=== PATIENT | male | born 1960 | race Caucasian/White ===

== ENCOUNTER 2017-07-09 13:42 | Emergency (ER) | payer OTHER ==
--- NOTE | 2017-07-09 15:40 | CT SCAN REPORT ---
EXAMINATION: CT HEAD WITHOUT CONTRAST CLINICAL INFORMATION: Double vision. COMPARISON: None. TECHNIQUE: Contiguous axial imaging was performed from the skull base to vertex without intravenous administration of contrast. DLP: 625 2 mGy-cm FINDINGS: There is no evidence of acute intracranial hemorrhage or territorial infarction. No abnormal mass effect or midline shift is seen. [place] to white matter differentiation is well preserved. No extra-axial fluid collections are identified. There is mild commensurate prominence of the ventricles and sulci consistent with diffuse volume loss. There are patchy areas of low attenuation in the periventricular and subcortical white matter, consistent with chronic microvascular ischemic disease. In addition there are more focal areas of low attenuation in the bilateral basal ganglia, consistent with lacunar infarcts. These are most prominent in the right thalamus in the right caudate body/tail. A lacunar infarct is also seen in the left cleaning radiata. The osseous structures and soft tissues are normal. The orbits appear normal. The visualized mastoid air cells and paranasal sinuses are well aerated. IMPRESSION: 1. There are no acute bleeds or territorial infarcts. 2. There are multiple lacunar infarcts bilaterally as described above. There is diffuse volume loss and there are chronic microvascular ischemic changes.
--- NOTE | 2017-07-09 16:12 | ED GENERAL ADULT ---
History of Present Illness General Chief Complaint: General Adult Stated Complaint: PT STATES "I HAVE DOUBLE VISION X 2DYS" Source: patient Exam Limitations: no limitations Vital Signs & Intake/Output Vital Signs & Intake/Output Vital Signs Date Time Temp Pulse Resp B/P B/P Pulse O2 O2 Flow FiO2 Mean Ox Delivery Rate 07/09 2154 98.4 83 20 180/100 96 Room Air 07/09 1932 98.6 74 20 192/120 96 Room Air 07/09 1418 100 22 160/98 98 Room Air Allergies Coded Allergies: No Known Allergies (07/09/17) Triage Note: PER PT X 2 DAYS DOUBLE VISION PT REPORTS NO HEADACHE AND IS BETTER TODAY NOW SEEING ONLY 1 BUT FEELS LIKE IT IS STILL NOT 100% RIGHT, PER PT WORKING VERY HARD LATELY NO HEADACHE PT TALKING INCESSANTLY AND IS DIFFICULT TO ASSESS CERTAINLY WITHOUT SLURRED SPEECH EQUAL GRASPS Triage Nurses Notes Reviewed? yes Onset: Abrupt Duration: day(s): Timing: recent history HPI: 07/09/17 7:18 PM 57-year-old male presents to the emergency department for double vision. The patient states that on Saturday afternoon he developed double vision. He said that he actually slept at work and over the last several days the symptoms have essentially completely resolved. There is no weakness there is no slurred speech there is no chest pain. No shortness of breath. No fever. No headache. (Garfield Hunt DO) Past History Travel History Traveled to [place] past 21 day No Medical History Any Pertinent Medical History? see below for history Neurological: NONE EENT: NONE Cardiovascular: NONE Respiratory: NONE Gastrointestinal: NONE Hepatic: NONE Renal: NONE Musculoskeletal: NONE Psychiatric: NONE Endocrine: NONE Surgical History Surgical History: non-contributory Psychosocial History What is your primary language French Tobacco Use: Never used Family History Hx Contributory? No (Garfield Hunt DO) Review of Systems Review of Systems Constitutional: Denies: fever. EENTM: Reports: see HPI, double vision. Respiratory: Denies: short of breath. Cardiovascular: Denies: chest pain. GI: Denies: abdominal pain. Genitourinary: Reports: no symptoms. Musculoskeletal: Reports: no symptoms. Skin: Reports: no symptoms. Neurological/Psychological: Reports: see HPI. Hematologic/Endocrine: Reports: no symptoms. Immunologic/Allergic: Reports: no symptoms. (Garfield Hunt DO) Physical Exam Physical Exam General Appearance: well developed/nourished, alert, awake, anxious, mild distress Head: atraumatic, normal appearance Eyes: Bilateral: normal appearance, PERRL, EOMI. Ears, Nose, Throat: normal pharynx, normal ENT inspection Neck: normal inspection, supple, full range of motion Respiratory: normal breath sounds, chest non-tender, no respiratory distress Cardiovascular: regular rate/rhythm Peripheral Pulses: 4+ radial (R), 4+ radial (L) Gastrointestinal: non-tender Back: normal range of motion Extremities: normal inspection Neurologic/Psych: no motor/sensory deficits, awake, alert, oriented x 3 Skin: intact, normal color, warm/dry Comments: On physical exam he does have minimal nystagmus when he looks to the right only, it is horizontal and fatigues. He also has slight weakness to the left medial rectus. No other neurological findings are identified. The case was discussed with the on-call neurologist Dr. Villanueva. He is in agreement with the plan that the patient be treated with Atrostatin, lisinopril, and aspirin. He did have a troponin of 0.04. This will be repeated. The patient was signed out to Dr. Castaneda at 7 PM. Core Measures ACS in differential dx? No CVA/TIA Diagnosis: No Sepsis Present: No Sepsis Focused Exam Completed? No (Garfield Hunt DO) Progress Differential Diagnoses I considered the following diagnoses in my evaluation of the patient: [CVA, TIA, intranuclear ophthalmoplegia, vertigo, labyrinthitis] Plan of Care: Orders Procedure Date/time Status TROPONIN LEVEL 07/09 2029 Complete EKG 07/09 2029 Active Add-on Test (ER Only) 07/09 170 Active EKG 07/09 170 Active Saline Lock 07/09 164 Active TROPONIN LEVEL 07/09 164 Complete PROTHROMBIN TIME 07/09 164 Complete COMPREHENSIVE METABOLIC PANEL 07/09 164 Complete CBC WITHOUT DIFFERENTIAL 07/09 164 Complete Laboratory Tests 07/09/17 2035: Troponin I 0.05 07/09/17 1725: Anion Gap 12, Estimated GFR > 60, BUN/Creatinine Ratio 25.0, Glucose 245 H, Calcium 9.0, Total Bilirubin 0.4, AST 24, ALT 32, Alkaline Phosphatase 72, Troponin I 0.04, Total Protein 6.9, Albumin 4.0, Globulin 2.9, Albumin/Globulin Ratio 1.4, PT 10.9, INR 1.00, CBC w Diff NO MAN DIFF REQ, RBC 4.96, MCV 85.5, MCH 28.3, MCHC 33.1, RDW 14.7 H, MPV 7.6, Gran % 75.1, Lymphocytes % 15.8 L, Monocytes % 7.3, Eosinophils % 1.5, Basophils % 0.3, Absolute Granulocytes 5.0, Absolute Lymphocytes 1.1 L, Absolute Monocytes 0.5, Absolute Eosinophils 0.1, Absolute Basophils 0 Initial ED EKG: NSR, NSST, LVH (Gilbert INGRAM,Garfield Trimble) Differential Diagnoses I considered the following diagnoses in my evaluation of the patient: Comments: 07/09/2017 7:41:01 PM patient signed out 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 07/09/2017 10:58:25 PM I have updated Catie on his test results. His physical examination shows no facial droop with cranial nerve testing. Sensation is intact bilaterally to the face. (Tonya HANDY,Garfield Mitchell) Departure Departure Condition: Stable Clinical Impression Primary Impression: Internuclear ophthalmoplegia of left eye Secondary Impressions: Diabetes mellitus, new onset Referrals: Patient Has No Primary Care Dr (PCP/Family) Departure Forms: Customer Survey General Discharge Information Comments The CT scan shows multiple old lacunar infarcts as below: PATIENT: CATIE SCHULTE PRESENT AGE: 57 PATIENT ACCOUNT NO: [id number] : 56 LOCATION: [facility] ORDERING PHYSICIAN: Garfield Hunt DO SERVICE DATE: 07/09/17 EXAM TYPE: CAT - CT HEAD WO IV CONTRAST EXAMINATION: CT HEAD WITHOUT CONTRAST CLINICAL INFORMATION: Double vision. COMPARISON: None. TECHNIQUE: Contiguous axial imaging was performed from the skull base to vertex without intravenous administration of contrast. DLP: 625 2 mGy-cm FINDINGS: There is no evidence of acute intracranial hemorrhage or territorial infarction. No abnormal mass effect or midline shift is seen. [place] to white matter differentiation is well preserved. No extra-axial fluid collections are identified. There is mild commensurate prominence of the ventricles and sulci consistent with diffuse volume loss. There are patchy areas of low attenuation in the periventricular and subcortical white matter, consistent with chronic microvascular ischemic disease. In addition there are more focal areas of low attenuation in the bilateral basal ganglia, consistent with lacunar infarcts. These are most prominent in the right thalamus in the right caudate body/tail. A lacunar infarct is also seen in the left cleaning radiata. The osseous structures and soft tissues are normal. The orbits appear normal. The visualized mastoid air cells and paranasal sinuses are well aerated. IMPRESSION: 1. There are no acute bleeds or territorial infarcts. 2. There are multiple lacunar infarcts bilaterally as described above. There is diffuse volume loss and there are chronic microvascular ischemic changes. DICTATED BY: Mik Ty MD DATE/TIME DICTATED:07/09/171527 COMPANY [employer] DATE/TIME TRANSCRIBED:07/09/171527 CONFIDENTIAL, DO NOT COPY WITHOUT APPROPRIATE AUTHORIZATION. <Electronically signed in Other Vendor System> SIGNED BY: Mik Ty MD 07/09/17 [id number] (Garfield Hunt DO) Departure Disposition: HOME OR SELF CARE Additional Instructions: Aspirin 81 mg daily. Atorvastatin and lisinopril as prescribed. Follow-up with the neurology group listed for reevaluation. Notify your primary care physician of this emergency department visit and treatment plan. Return if any concerns or sudden worsening. Please note that there might be incidental findings in your evaluation that are unrelated to the current emergency department visit. Please notify your primary care doctor about this emergency department visit in order to obtain and review all of the testing performed so that these incidental findings can be monitored as needed. If you had an x-ray performed, please understand that some fractures may not be seen on the initial set of x-rays. If your symptoms persist you might need a repeat set of x-rays to check for such a fracture. If you had a laceration evaluated, please understand that foreign bodies such as glass or wood may not be visible to the naked eye or on plain x-rays. If the wound becomes red, swollen, increasingly more painful or if there is any drainage from the wound, please have it reevaluated by a physician for the possibility of a retained foreign body. If you're unable to follow up as outlined in the discharge instructions please return to the emergency department. Thank you for choosing the [facility] Emergency Department for your care. It was a pleasure to serve you today. Garfield Castaneda M.D. [facility] Prescriptions: Current Visit Scripts Lisinopril 1 TAB PO DAILY #30 TAB Atorvastatin Calcium 1 TAB PO DAILY #30 TAB (Tonya HANDY,Garfield Mitchell) Critical Care Note Critical Care Note Critical Care Time: non-applicable (Gilbert INGRAM,Garfield Trimble)
[2017-07-09 17:54] LABS: ABSOLUTE BASOPHIL COUNT 0 /CUMM (0.0-0.2); ABSOLUTE EOSINOPHIL COUNT 0.1 /CUMM (0.0-0.7); ABSOLUTE LYMPH COUNT 1.1 /CUMM (1.2-3.4); ABSOLUTE MONOCYTE COUNT 0.5 /CUMM (0.10-0.60); BASOPHIL % 0.3 % (0.0-2.0); EOSINOPHIL % 1.5 % (0-5); GRANULOCYTE % 75.1 % (42.2-75.2); HEMATOCRIT 42.4 % (42-52); MEAN CORPUSCULAR HGB 28.3 PG (27.0-31.0); MEAN CORPUSCULAR HGB CONC 33.1 G/DL (33.0-37.0); MEAN CORPUSCULAR VOLUME 85.5 FL (80.0-94.0); MEAN PLATELET VOLUME 7.6 FL (7.4-10.4); PLATELET COUNT 266 /CUMM (130-400); RBC DISTRIBUTION WIDTH 14.7 % (11.5-14.5); RED BLOOD CELL CT 4.96 /CUMM (4.70-6.10); WHITE BLOOD CELL COUNT 6.7 /CUMM (4.8-10.8)
[2017-07-09 18:12] LABS: PT 10.9 SEC (9.4-12.5)
[2017-07-09] MEDS ORDERED: LISINOPRIL10 M1 PO (23:02)
[2017-07-09] MEDS ORDERED: ATORVASTATIN CA20 M1 PO (23:02)
[2017-07-09 23:11] VITALS: BP 182/100
== END 2017-07-09 23:39 ==
LOC: ERH 13:42
PROVIDERS: Emergency Medicine
DX: H51.22 Internuclear ophthalmoplegia, left eye (principal); E11.9 Type 2 diabetes mellitus without complications; H53.2 Diplopia
CPT/HCPCS: 93005; 93010; J3490